=== PATIENT | female | born 1980 | race African-American/Black ===

== ENCOUNTER 2020-01-27 17:48 | Emergency (ER) | payer BC ==
--- NOTE | 2020-01-27 18:03 | ER Document Report ---
ED General - General Chief Complaint: Chest Wall Pain Stated Complaint: CHEST PAIN Time Seen by Provider: 01/27/20 18:01 Primary Care Provider: BENY GUERRERO [Primary Care Provider] - Follow up as needed - Related Data Allergies/Adverse Reactions: No Known Allergies Allergy (Verified 01/27/20 18:01) Past Medical History Past Surgical History: Reports: Hx Tubal Ligation - Immunizations Hx Diphtheria, Pertussis, Tetanus Vaccination: No Physical Exam - Vital signs Vitals: Temp Pulse Resp BP Pulse Ox 98.0 F 82 14 155/98 H 100 01/27/20 17:57 01/27/20 17:57 01/27/20 17:57 01/27/20 17:57 01/27/20 17:57 Course - Vital Signs Vital signs: Temp Pulse Resp BP Pulse Ox 98.0 F 82 14 155/98 H 100 01/27/20 17:57 01/27/20 17:57 01/27/20 17:57 01/27/20 17:57 01/27/20 17:57 Discharge - Discharge Referrals: BENY GUERRERO [Primary Care Provider] - Follow up as needed
--- NOTE | 2020-01-27 18:12 | ER Document Report ---
HPI - HPI Patient complains to provider of: left side rib pain Time Seen by Provider: 01/27/20 18:01 Onset: This afternoon Onset/Duration: Sudden Quality of pain: Achy Pain Level: 3 Context: 40-year-old female presents emergency department with complaints of pain to the left chest wall with deep breath or with movement. Reports that she was at work this afternoon stood up went to the bathroom went to wash her hands turned and heard ribs started hurting. Denies trauma. Denies fever vomiting diarrhea. Denies chest pain. Denies history of cardiac disease. Associated Symptoms: None Exacerbated by: Deep breathing Relieved by: Denies Similar symptoms previously: No Recently seen / treated by doctor: No - CONSTITUTIONAL Constitutional: DENIES: Fever, Chills - NEURO Neurology: DENIES: Headache, Weakness, Vision blurred, Dizzinesss / Vertigo - CARDIOVASCULAR Cardiovascular: DENIES: Chest pain - RESPIRATORY Respiratory: DENIES: Trouble Breathing, Coughing - REPRODUCTIVE LMP: 01/27/2020 Reproductive: DENIES: : - MUSCULOSKELETAL Musculoskeletal: DENIES: Extremity pain Past Medical History - General Information source: Patient Last Menstrual Period: current - Social History Smoking Status: Never Smoker Chew tobacco use (# tins/day): No Frequency of alcohol use: Occasional Drug Abuse: None Occupation: [employer] Family History: Reviewed & Not Pertinent Patient has suicidal ideation: No Patient has homicidal ideation: No - Medical History Medical History: Negative Past Surgical History: Reports: Hx Tubal Ligation - Immunizations Hx Diphtheria, Pertussis, Tetanus Vaccination: No Vertical Provider Document - CONSTITUTIONAL Agree With Documented VS: Yes Exam Limitations: No Limitations General Appearance: WD/WN, No Apparent Distress - HEENT HEENT: Atraumatic, Normal ENT Exam, Normocephalic - NECK Neck: Normal Inspection, Supple. negative: Lymphadenopathy-Left, Lymphadenopathy-Right - RESPIRATORY Respiratory: Breath Sounds Normal, No Respiratory Distress, Chest Non-Tender - no c/o pain with palpation, patient takes a nice deep breath no erythema no swelling respiratory rate even unlabored - CARDIOVASCULAR Cardiovascular: Regular Rate, Regular Rhythm, No Murmur - GI/ABDOMEN Gastrointestinal: Abdomen Soft, Abdomen Non-Tender - BACK Back: Normal Inspection - Denies pain - MUSCULOSKELETAL/EXTREMETIES Musculoskeletal/Extremeties: JENNIFER CANAS - NEURO Level of Consciousness: Awake, Alert, Appropriate Motor/Sensory: No Motor Deficit - DERM Integumentary: Warm, Dry Adult Front & Back Diagram: 1 - Patient reports pain with deep breath and movement Course - Re-evaluation Re-evalutation: 01/27/20 18:14 40-year-old female presents with left-sided chest pain that started when she went to the bathroom and turned after washing her hands. Denies trauma. Reports it hurts when she takes a deep breath or with certain movements. Denies history of cardiac disease. 01/27/20 18:30 Ribs w/Chest X-Ray 01/27/20 18:05 IMPRESSION: NO PNEUMOTHORAX. NO DISPLACED RIB FRACTURES. 01/27/20 18:35 X-ray is negative for pneumothorax or fractured ribs. Patient was instructed on x-ray. Patient has possible muscular injury since it happened when she turned while washing her hands.. Flexeril sent to patient's pharmacy. She was instructed on this instructed on the importance of cough deep breath. She was instructed to return for worsening symptoms or any concerns. She verbalized understanding. - Vital Signs Vital signs: Temp Pulse Resp BP Pulse Ox 98.0 F 82 14 155/98 H 100 01/27/20 17:57 01/27/20 17:57 01/27/20 17:57 01/27/20 17:57 01/27/20 17:57 - Diagnostic Test Radiology reviewed: Image reviewed, Reports reviewed - EKG Interpretation by Me EKG shows normal: Sinus rhythm Rate: Normal Additional EKG results interpreted by me: 01/27/20 18:[address] elevation no T wave inversion Discharge - Discharge Clinical Impression: Rib pain on left side Condition: Stable Disposition: HOME, SELF-CARE Instructions: Family Physicians / Practices, Use of [id number] Ibuprofen ([facility]), Muscle Relaxers ([facility]), Rib Injuries and Fractures ([facility]) Additional Instructions: *You have been evaluated for left-sided rib pain Monitor your temperature, take Motrin as indicated *take medication as prescribed Cough and deep breathe at least once an hour *Follow up with a primary care provider within 1 week for recheck *Return to ED for worsening condition, changes, needs, difficulty breathing, fever, concerns Monitor your blood pressure. Your blood pressure was elevated today. This may be because you were anxious, in pain or because you need medication. It is important to follow up with your primary care provider for full evaluation. Prescriptions: Cyclobenzaprine HCl [Flexeril 10 Mg Tablet] 10 mg PO TID #15 tablet Forms: Elevated Blood Pressure, Return to Work Referrals: LOCALMD,NO [Primary Care Provider] - Follow up as needed
--- NOTE | 2020-01-27 18:26 | RADIOLOGY REPORT (SQ) ---
EXAM DESCRIPTION: RIBS LEFT W/PA CHEST COMPLETED DATE/TIME: 01/27/2020 6:13 pm REASON FOR STUDY: pain with deep breath COMPARISON: None. TECHNIQUE: Frontal view of the chest and additional views of the left ribs acquired. NUMBER OF VIEWS: Three views LIMITATIONS: None. FINDINGS: FRONTAL CXR: No pneumothorax. No pleural effusion. No atelectasis or infiltrates. RIBS: No displaced rib fractures. No lytic or blastic bony lesions. OTHER: No other significant finding. IMPRESSION: NO PNEUMOTHORAX. NO DISPLACED RIB FRACTURES. COMMENT: SITE OF TRAUMA/COMPLAINT MARKED/STAMP COMPLETED: No TECHNICAL DOCUMENTATION: JOB ID: [id number] 2010 [employer]- All Rights Reserved Reading location - IP/workstation name: [email or web address]
[2020-01-27 18:40] VITALS: BP 145/94
--- NOTE | 2020-01-28 08:36 | EKG REPORT ---
SEVERITY:- NORMAL ECG - SINUS RHYTHM : Confirmed by: Zach Curry MD 28-Jan-2020 08:35:04
== END 2020-01-27 18:40 | disposition home or self-care (01) ==
LOC: ER 17:48
DX: R07.89 Other chest pain (principal); Z98.51 Tubal ligation status
CPT/HCPCS: 93005; 93010; 99284